=== PATIENT | female | born 1960 | race Caucasian/White ===

== ENCOUNTER → 2016-09-12 | Outpatient (CLI) | payer OTHER ==
[~2016-09-12] MED LIST: GADAVIST IV PRN
--- NOTE | 2016-09-12 08:30 | DIAGNOSTIC IMAGING REPORT ---
ABDOMINAL MRI WITH AND WITHOUT INTRAVENOUS CONTRAST HISTORY: Renal cysts. Follow-up. TECHNIQUE: Multiplanar multisequence MRI of the abdomen was performed both before and after the intravenous administration of contrast. COMPARISON STUDY: Abdominal MRI 08/31/2015. FINDINGS: No change in the 4.4 x 2.9 cm well-circumscribed T2 hyperintense, T1 hypointense nonenhancing lesion within the interpolar region of the left kidney. This is consistent with a simple cyst. The right kidney enhances normally. No hydronephrosis. The liver, spleen, adrenal glands, pancreas and gallbladder are unremarkable. IMPRESSION: No change in the 4.4 x 2.9 cm left renal cyst. Electronically signed by: Jatinder Schultz M.D. 09/12/2016 8:28 AM Dictated Date/Time: 09/12/2016 8:19 AM
== END | disposition home or self-care (01) ==
LOC: C.MRI 07:05
PROVIDERS: ATTEND Urology
DX: N28.1 Cyst of kidney, acquired (principal)